=== PATIENT | male | born 1980 | race Caucasian/White ===

== ENCOUNTER 2022-02-23 18:38 | Emergency (ER) | payer OTHER, SELFPAY ==
[2022-02-23 18:47] VITALS: BP 142/102; PULSE 66; RESP 20; TEMP 36.7; O2SAT 98
--- NOTE | 2022-02-23 20:27 | ED.DENTAL ---
HPI - Dental/Oral General Chief complaint: Upper Respiratory Infection Stated complaint: Jaw Pain Time Seen by Provider: 02/23/22 20:27 Source: patient, RN notes reviewed and old records reviewed Mode of arrival: ambulatory Limitations: no limitations History of Present Illness HPI Narrative: 41 year old male presents to [facility] care with complaints of jaw pain on the right side for the past 2 days with swelling now noted of right side of face today. Patient states that he had a headache initially and pain has progressively worsened to the right side of his jaw and face for the past 2 days. He reports that he is unaware of any bad teeth and pain is worse when he opens his mouth. Patient denies any difficulty with swallowing or any breathing difficulty. Related Data Home Medications Medication Instructions Recorded Confirmed albuterol sulfate 2 puff INHALATION Q4-6H PRN 02/23/22 02/23/22 amlodipine 10 mg PO DAILY 02/23/22 02/23/22 cetirizine 10 mg PO DAILY 02/23/22 02/23/22 Allergies Allergy/AdvReac Type Severity Reaction Status Date / Time No Known Allergies Allergy Verified 02/23/22 19:05 Review of Systems Review of Systems: CONSTITUTIONAL: Denies fever, chills, or sweats. EYES: Denies visual changes, redness, or discharge. ENT: Denies rhinorrhea, congestion, sore throat, or otalgia, positive for right jaw pain and some facial swelling on right side.. CARDIOVASCULAR: Denies chest pain, palpitations, or edema. RESPIRATORY: Denies cough or dyspnea. GASTROINTESTINAL: Denies abdominal pain, nausea, vomiting, or diarrhea. GENITOURINARY: Denies dysuria or hematuria. SKIN: Denies rash or itching. MUSCULOSKELETAL: Denies back pain, joint pain, or myalgia. NEUROLOGIC: Denies present headache,no numbness, or weakness. PSYCHIATRIC: Denies anxiety or depression. All systems reviewed & are unremarkable except as noted in HPI and below PMFSH Past Medical History Medical History (Updated 02/26/22 @ 02:17 by Arina Cortes NP) Asthma Hypertension Surgical History Surgical History (Updated 02/26/22 @ 02:18 by Arina Cortes NP) H/O wrist surgery History of repair of anterior cruciate ligament of right knee History of tonsillectomy and adenoidectomy Social History Social History (Updated 02/26/22 @ 07:43 by Arina Cortes NP) Smoking status: Never smoker Alcohol intake: current Alcohol use details: social Substance use type: does not use Living arrangements: with family Gender identity (if verbalized by the patient): Male Comments At time of signature, agree with nursing past medical, surgical, social and family history. There is no relevant family history pertinent to the presenting complaint Exam Narrative: GENERAL: Well-appearing, well-nourished, and in no acute distress. HEAD: Normocephalic, atraumatic. EYES: PERRLA and EOMI. ENT: Nares clear, no rhinorrhea or epistaxis. Mucous membranes moist.TM's normal with good light reflex, throat pink with no swelling or redness tonsils absent, palpable right jaw discomfort and right facial discomfort with mild edema with no palpable masses or lesions, no noted red gums or any noted broken teeth or caries, no trismus or any Gregg angina noted NECK: Supple.no lymphadenopathy CHEST: Clear to auscultation. No respiratory distress.SAO2 98% on room air, no dyspnea or tachypnea noted HEART: Regular rate and rhythm. No murmur heard. Normal peripheral pulses. ABDOMEN: Soft, nontender, nondistended, normal active bowel sounds. EXTREMITIES: Normal range of motion. No edema. SKIN: Warm, dry, no rash. NEURO: No focal deficits. Alert and oriented x3. Course Course Level of Care: Express Care Visit Vital Signs Vital signs: Vital Signs Temperature 36.7 C 02/23/22 18:47 Pulse Rate 66 02/23/22 18:47 Respiratory Rate 20 02/23/22 18:47 Blood Pressure 142/102 H 02/23/22 18:47 Pulse Oximetry 98 02/23/22 18:47 Temperature 36.7 C 02/23/22 18
== END 2022-02-23 20:37 | disposition home or self-care (01) ==
PROVIDERS: Emergency Provider Registered Nurse
DX: R68.84 Jaw pain (principal); R22.0 Localized swelling, mass and lump, head; J45.909 Unspecified asthma, uncomplicated; I10 Essential (primary) hypertension
CPT/HCPCS: 99213; G0463